=== PATIENT | female | born 1970 | race Caucasian/White ===

== ENCOUNTER → 2024-10-18 11:39 | Outpatient (CLI) | payer OTHER, SELFPAY ==
--- NOTE | 2024-10-18 11:44 | DI.MG.S_ITS ---
MM diagnostic mammo unilat LT: 10/18/2024. BI-RADS: 1 CLINICAL: 54-year old female for left diagnostic mammogram. Tyrer-Cuzick lifetime risk of 34.4%. Current reported family history of breast cancer: maternal grandmother and mother. History of ovarian cancer in one first-degree relative. The patient presents for additional evaluation of an inconclusive screening mammogram. PRIOR EXAMS: 08/20/2024, 05/26/2018. MAMMOGRAPHY TECHNIQUE: 2D and 3D (tomosynthesis) digital mammographic views obtained, with additional images as needed for full coverage. Current study was also evaluated with a Computer Aided Detection (CAD) system. DENSITY Left: B. There are scattered areas of fibroglandular density. MAMMOGRAPHY FINDINGS Left: Upper Outer Quadrant, Posterior depth: There is no suspicious mammographic finding to account for imaging concern of a mass on mammography. No suspicious mass, asymmetry, microcalcification, or other abnormality seen. IMPRESSION: Left * No evidence of malignancy. RECOMMENDATIONS Bilateral * According to the Tyrer-Cuzick Risk Assessment Model, based on the information provided your patient has a greater than 20% lifetime risk for developing breast cancer. Consider supplemental screening with breast MRI and participation in a high risk screening program. * Annual screening mammography. COMMENTS: Findings and recommendations were conveyed to the patient during today's evaluation. OVERALL ASSESSMENT CATEGORY BI-RADS-1: Negative. The [employer] recommends annual screening mammography beginning at age 40 for women with average risk of breast cancer. ELECTRONICALLY SIGNED: Andie Bates M.D. on 10/18/2024 at 12:58:28 PM PT Interpreting Station ID: [id number]
== END ==
LOC: MAMMO 11:42
PROVIDERS: PCP Nurse Practitioner Family; Referring Provider Nurse Practitioner Family; Visit Provider Nurse Practitioner Family
DX: R92.8 Other abnormal and inconclusive findings on diagnostic imaging of breast (principal); R92.322 Mammographic fibroglandular density, left breast; Z80.3 Family history of malignant neoplasm of breast; Z80.41 Family history of malignant neoplasm of ovary
CPT/HCPCS: 77065; G0279